=== PATIENT | female | born 1990 | race Caucasian/White ===

== ENCOUNTER 2018-05-10 23:05 | Emergency (ER) | payer SELFPAY ==
[~2018-05-10] VITALS: Ht 154.9 cm; Wt 63.5 kg
[2018-05-10 23:12] VITALS: Ht 154.9 cm; Wt 63.5 kg
[2018-05-10 23:52] LABS: BASOPHIL % 0.4 % (0-2); PLATELET COUNT 395 x10^3mcL (130-400)
[2018-05-10 23:53] LABS: RED CELL DISTRIBUTION WIDTH 15.6 % (11.5-14.5)
[2018-05-11 00:02] LABS: CALCIUM 7.9 mg/dL (8.5-10.1); CARBON DIOXIDE 22.9 mmol/L (21-32); CHLORIDE SERUM 105 mmol/L (98-107); CREATININE SERUM 0.6 mg/dL (0.6-1.0); GFR1 > 60 mL/min; GLUCOSE SERUM 111 mg/dL (74-106); POTASSIUM SERUM 3.7 mmol/L (3.5-5.1); SODIUM SERUM 137 mmol/L (136-145)
[2018-05-11 00:07] LABS: ALBUMIN 3.6 g/dL (3.4-5.0); ALKALINE PHOSPHATASE 67 U/L (46-116); ALT/SGPT 25 U/L (14-59); AST/SGOT 18 U/L (15-37); BILIRUBIN TOTAL 0.3 mg/dL (0.20-1.00); TOTAL PROTEIN, SERUM 7.4 g/dL (6.4-8.2)
[2018-05-11 02:58] VITALS: BP 110/74
== END 2018-05-11 03:02 | disposition home or self-care (01) ==
LOC: ED 23:05
PROVIDERS: Emergency Medicine
DX: S06.0X9A Concussion with loss of consciousness of unspecified duration, initial encounter (principal); S02.82XA Fracture of other specified skull and facial bones, left side, initial encounter for closed fracture; S01.112A Laceration without foreign body of left eyelid and periocular area, initial encounter; X58.XXXA Exposure to other specified factors, initial encounter; Y93.89 Activity, other specified; Y92.488 Other paved roadways as the place of occurrence of the external cause; Y99.8 Other external cause status
CPT/HCPCS: 90715; G0480

== ENCOUNTER 2018-11-28 18:06 | Emergency (ER) | payer BC ==
[~2018-11-28] VITALS: Ht 160 cm; Wt 79.8 kg
[2018-11-28 18:28] VITALS: BP 127/85; Ht 160 cm; Wt 79.8 kg
== END 2018-11-28 19:12 | disposition home or self-care (01) ==
LOC: ED 18:06
DX: H10.89 Other conjunctivitis (principal)

== ENCOUNTER 2020-06-21 10:20 | Emergency (ER) | payer BC ==
[~2020-06-21] VITALS: Ht 160 cm; Wt 88.5 kg
[2020-06-21 10:28] VITALS: BP 114/69; Ht 160 cm; Wt 88.5 kg
== END 2020-06-21 10:49 | disposition left against medical advice (07) ==
LOC: ED 10:20
DX: O9A.213 Injury, poisoning and certain other consequences of external causes complicating pregnancy, third trimester (principal); S30.0XXA Contusion of lower back and pelvis, initial encounter; R10.9 Unspecified abdominal pain; Z3A.32 32 weeks gestation of pregnancy; W01.0XXA Fall on same level from slipping, tripping and stumbling without subsequent striking against object, initial encounter; Y93.89 Activity, other specified; Y92.89 Other specified places as the place of occurrence of the external cause; Y99.8 Other external cause status